=== PATIENT | female | born 1935 | race Caucasian/White ===

== ENCOUNTER 2020-10-11 12:18 | Emergency (ER) | payer OTHER ==
[~2020-10-11] VITALS: Ht 167.6 cm; Wt 76.2 kg
[~2020-10-11 12:18] MED LIST: ACET-2065 PO; AMLO-211 PO; ASCO500T56 PO; ASPI-963 PO; CALC-141 PO; CALC-361 PO; DIPH25CA61 PO; DOCU100C33 PO; ENOX40SY4 SQ; FLUD0.1T PO; HYDR-3237 PO; HYDR-3342 PO; METO50TA82 PO; NIMO30CA3 PO; NITR0.4T28 SL; SULF-169 PO; TEMA15CA PO
[2020-10-11 12:20] VITALS: BP 185/99
--- NOTE | 2020-10-11 12:30 | NUR ---
EKG TRIAGE. PULSE OX HR RANGE FROM 80S-140S.
--- NOTE | 2020-10-11 12:58 | NUR ---
PT STATES RIGHT LOWER LI HAS BEEN RED WITH WOUND X1 MONTH. PT HAS BEEN APPLYING ABX OINTMENT REGULARLY. PT SEEN TODAY BY [facility] EVAL TODAY AND ADVISED TO COME TO ER. PT CONNECTED TO MONITORING. WARM BLANKETS PROVIDED. CALL LIGHT IN REACH. GENERAL OPERATOR PLACED PIV AND LABS DRAWN.
--- NOTE | 2020-10-11 13:23 | NUR ---
2 SETS BLOOD CX DRAWN.
[2020-10-11] MEDS ORDERED: CLINDAMYCIN PMX 600MG/50ML 50 ML ONE (13:25)
[2020-10-11] MEDS ORDERED: CLINDAMYCIN PMX 600MG/50ML 50 ML IVPB ONE (13:30)
[2020-10-11] MEDS ORDERED: SODIUM CHLORIDE FLUSH 10ML SYR IVF ONE (13:30)
--- NOTE | 2020-10-11 13:32 | NUR ---
IV ABX STARTED PER SEP. PT RESTING COMFORTABLY ON GURNEY. NADN. DENIES NEEDS AT THIS TIME. AWAITING US.
[2020-10-11 13:33] LABS: BASOPHILS % (AUTO) 1 % (0-1); EOSINOPHILS % (AUTO) 5 % (1-7); LYMPHOCYTES % (AUTO) 30 % (22-44); MEAN CORPUSCULAR HEMOGLOBIN 33.5 pg (27.0-34.8); MEAN CORPUSCULAR HGB CONC 33.2 g/dL (32.4-35.8); MEAN PLATELET VOLUME 10.1 fL (7.4-10.4); MONOCYTES % (AUTO) 9 % (2-9); NEUTROPHILS % (AUTO) 55 % (42-75); PLATELET COUNT 266 x10^3/uL (130-400); RED BLOOD COUNT 3.72 x10^6/uL (3.82-5.3); RED CELL DISTRIBUTION WIDTH 14.3 % (9.6-15.2)
[2020-10-11 13:36] LABS: MD NO
--- NOTE | 2020-10-11 13:43 | NUR ---
US AT BEDSIDE.
[2020-10-11 14:06] LABS: ALBUMIN 4.7 g/dL (3.4-5.0); ANION GAP 8 mmol/L (5-15); CALCIUM 9.3 mg/dL (8.5-10.1); CHLORIDE 107 mmol/L (98-107); CREATININE 0.92 mg/dL (0.55-1.02)
--- NOTE | 2020-10-11 14:09 | NUR ---
PT AMBULATED TO RESTROOM WITH STEADY GAIT.
--- NOTE | 2020-10-11 14:41 | NUR ---
MD AT BEDSIDE TO UPDATE PT ON POC.
== END 2020-10-11 15:08 | disposition home or self-care (01) ==
LOC: ED 14:10
DX: L03.115 Cellulitis of right lower limb (principal); R00.0 Tachycardia, unspecified; I10 Essential (primary) hypertension; I48.91 Unspecified atrial fibrillation; Z86.73 Personal history of transient ischemic attack (TIA), and cerebral infarction without residual deficits; Z87.891 Personal history of nicotine dependence
CPT/HCPCS: 36415; 80048; 82040; 85025; 87040; 93005; 96365; 96366